=== PATIENT | female | born 1940 | race Caucasian/White ===

== ENCOUNTER → 2016-11-28 | Outpatient (CLI) | payer MEDICARE, BC ==
[~2016-11-28] MED LIST: ALENDRONATE SOD35 M1 PO; AMOXIL500 MG PO; ASPIRIN E.C.325 MG PO; ASPIRIN325 M2 PO; BACTRIM DS 8001 TAB PO; CALCIUM W/D; CIPRO500 MG PO; CITRACAL + D 311 TAB PO; GLIMEPIRIDE4 MG PO; LEVOFLOXACIN500 MG PO; LISINOPRIL10 MG PO; MEDROL DOSEPAK4 MG PO; METFORMIN500 MG PO; NIASPAN500 MG PO; NIFEDIPINE90 MG PO; PREVACID; PREVACID30 MG PO; PROCARDIA XL90 MG PO; ROBITUSSIN DM 105 ML PO; SIMVASTATIN40 MG PO; TRIMETHOPRIM100 MG PO; VITAMIN D1000 IU PO; VITAMIN D50000 I1 PO
[2016-11-28 11:11] LABS: BASO # 0.1 10*3/uL (0.0-0.1); BASO % 0.9 % (0.0-1.0); EOS # 0.3 10*3/uL (0.0-0.4); HEMATOCRIT 37.1 % (37.0-47.0); HEMOGLOBIN 11.8 g/dl (12.0-16.0); LYMPH % 26.7 % (27.0-41.0); MEAN CORPUSCULAR HGB 29.6 pg (27.0-31.0); MEAN CORPUSCULAR HGB CONC 31.8 g/dl (33.0-37.0); MONO # 0.6 10*3/uL (0.1-1.0); MONO % 5.5 % (3.0-9.0); NEUT # 7.2 10*3/uL (2.3-7.9); NEUT % 63.3 % (47.0-73.0); PLATELET COUNT AUTOMATED 418 10*3/uL (130-400); RED BLOOD COUNT 3.99 10*6/uL (4.10-5.10); RED CELL DISTRI WIDTH 13.3 % (0-14.5); WHITE BLOOD COUNT 11.4 10*3/uL (4.8-10.8)
[2016-11-28 11:44] LABS: BUN 22 mg/dl (7-24); CHLORIDE 107 mmol/L (98-107); CHOLESTEROL 132 mg/dL (<200); CPK 60 U/L (26-192); CREATININE 0.76 mg/dL (0.55-1.02); HDL CHOLESTEROL 41 mg/dl (40-60); LDL CHOLESTEROL 65 mg/dL (9-159); POTASSIUM 4.5 mmol/L (3.5-5.1); SGOT/AST 10 IU/L (3-35); SODIUM 138 mmol/L (136-145); TRIGLYCERIDES 130 mg/dl (<150); VLDL CHOLESTEROL 26 mg/dL (6-40)
== END | disposition home or self-care (01) ==
LOC: LAB 10:47
PROVIDERS: Internal Medicine
DX: E78.5 Hyperlipidemia, unspecified (principal); I10 Essential (primary) hypertension; E11.9 Type 2 diabetes mellitus without complications

== ENCOUNTER → 2017-06-24 | Outpatient (CLI) | payer MEDICARE, BC | END | disposition home or self-care (01) | LOC: LAB 09:12 | PROVIDERS: Internal Medicine | DX: E55.9 Vitamin D deficiency, unspecified (principal); E87.8 Other disorders of electrolyte and fluid balance, not elsewhere classified ==

== ENCOUNTER → 2018-09-08 | Outpatient (CLI) | payer MEDICARE, BC ==
[2018-09-11 17:07] LABS: t-TRANSGLUTAMINASE (tTG) IGA <2 U/mL (0-3)
[2018-09-13 17:03] LABS: CHROMOGRANIN A 5 nmol/L (0-5)
== END | disposition home or self-care (01) ==
LOC: LAB 10:59
PROVIDERS: Internal Medicine Gastroenterology
DX: R19.7 Diarrhea, unspecified (principal)

== ENCOUNTER 2019-06-21 12:41 | Inpatient (IN) | payer MEDICARE, BC ==
[~2019-06-21] VITALS: Ht 152.4 cm; Wt 82.6 kg
[2019-06-21 12:46] VITALS: BP 138/66
[2019-06-21 13:40] LABS: BASO # 0.1 10*3/uL (0.0-0.1); BASO % 0.4 % (0.0-1.0); EOS # 0.1 10*3/uL (0.0-0.4); EOS % 0.2 % (1.0-4.0); HEMATOCRIT 41.9 % (37.0-47.0); LYMPH # 2.3 10*3/uL (1.3-4.4); LYMPH % 11.3 % (27.0-41.0); MEAN CELL VOLUME 92.7 fl (81.0-99.0); MEAN CORPUSCULAR HGB 29.9 pg (27.0-31.0); MEAN CORPUSCULAR HGB CONC 32.2 g/dl (33.0-37.0); MEAN PLATELET VOLUME 10.2 fl (9.6-12.3); MONO # 0.7 10*3/uL (0.1-1.0); MONO % 3.5 % (3.0-9.0); NEUT # 16.8 10*3/uL (2.3-7.9); NEUT % 84.1 % (47.0-73.0); PLATELET COUNT AUTOMATED 383 10*3/uL (130-400); RED BLOOD COUNT 4.52 10*6/uL (4.10-5.10); RED CELL DISTRI WIDTH 14.9 % (0-14.5)
[2019-06-21 13:43] LABS: BILIRUBIN NEGATIVE (NEGATIVE); BLOOD TRACE-INTACT (NEGATIVE); CLARITY SL CLOUDY (CLEAR); COLOR YELLOW (YELLOW); GLUCOSE NEGATIVE (NEGATIVE); KETONE 1+ (NEGATIVE); LEUKO ESTERASE TRACE (NEGATIVE); NITRITE NEGATIVE (NEGATIVE); UROBILINOGEN 0.2 E.U./dl (0.2-1.0)
[2019-06-21 13:54] LABS: BACTERIA 2+
[2019-06-21 13:58] LABS: ALBUMIN 3.6 gm/dl (3.1-4.5); ALKALINE PHOSPHATASE 22 U/L (45-117); BUN 25 mg/dl (7-24); CHLORIDE 110 mmol/L (98-107); POTASSIUM 4.3 mmol/L (3.5-5.1); SGOT/AST 24 IU/L (3-35); SGPT/ALT 27 U/L (12-78); SODIUM 137 mmol/L (136-145); TOTAL PROTEIN 8.2 gm/dL (6.4-8.2)
[2019-06-21 14:00] LABS: TROPONIN I < 0.015 ng/ml (<0.045)
[2019-06-21 16:00] VITALS: BP 138/66
[2019-06-21] MEDS ORDERED: PRILOSEC20 M1 PO (16:06)
[2019-06-21] MEDS ORDERED: LANTUS SOL100 UNIT/1 SQ (16:07)
[2019-06-21] MEDS ORDERED: LANTUS SOL100 UNIT/1 SC (16:10)
[2019-06-21 17:35] VITALS: BP 122/77
--- NOTE | 2019-06-21 18:00 | NUR ---
Time: 1699 A 79 year old FEMALE admitted to 4E under services of DAYA MCKEON DO. Pt. arrived via bed from ER. Chief complaint: DIZZINESS, RIB FRACTURE, DEHYDRATION SHARON AYALA
[2019-06-21 20:00] VITALS: BP 158/69
--- NOTE | 2019-06-21 22:08 | NUR ---
PATIENT MEDICATED WITH NORCO FOR COMPLAINTS OF RIGHT RIB PAIN. WILL CONTINUE TO MONITOR. CALL LIGHT IN REACH.
[2019-06-22] VITALS: BP 154/58
--- NOTE | 2019-06-22 04:00 | NUR ---
PATIENT MEDICATED WITH TYLENOL FOR RIGHT RIB AND SHOULDER PAIN. WILL CONTINUE TO MONITOR.
--- NOTE | 2019-06-22 05:45 | NUR ---
PATIENT MEDICATED WITH NORCO FOR COMPLAINTS OF RIGHT RIB PAIN. WILL MONITOR FOR EFFECTIVENESS. CALL LIGHT IN REACH.
[2019-06-22 06:14] LABS: BUN 21 mg/dl (7-24); CHLORIDE 112 mmol/L (98-107); CREATININE 0.78 mg/dL (0.55-1.02); SODIUM 142 mmol/L (136-145)
[2019-06-22 06:14] LABS: BASO # 0.1 10*3/uL (0.0-0.1); BASO % 0.6 % (0.0-1.0); EOS # 0.1 10*3/uL (0.0-0.4); EOS % 1.1 % (1.0-4.0); HEMATOCRIT 36.5 % (37.0-47.0); LYMPH # 2.7 10*3/uL (1.3-4.4); LYMPH % 21.9 % (27.0-41.0); MEAN CELL VOLUME 92.2 fl (81.0-99.0); MEAN CORPUSCULAR HGB 29.8 pg (27.0-31.0); MEAN CORPUSCULAR HGB CONC 32.3 g/dl (33.0-37.0); MEAN PLATELET VOLUME 10.3 fl (9.6-12.3); MONO % 8.4 % (3.0-9.0); NEUT # 8.2 10*3/uL (2.3-7.9); NEUT % 67.8 % (47.0-73.0); PLATELET COUNT AUTOMATED 361 10*3/uL (130-400); RED BLOOD COUNT 3.96 10*6/uL (4.10-5.10); RED CELL DISTRI WIDTH 15.4 % (0-14.5); WHITE BLOOD COUNT 12.1 10*3/uL (4.8-10.8)
[2019-06-22 06:18] LABS: CHOLESTEROL 158 mg/dL (<200); FREE T4 0.98 ng/dl (0.76-1.46); HDL CHOLESTEROL 34 mg/dl (40-60); LDL CHOLESTEROL 84 mg/dL (9-159); PHOSPHOROUS 4.1 mg/dL (2.5-4.9); TRIGLYCERIDES 198 mg/dl (<150); VLDL CHOLESTEROL 40 mg/dL (6-40)
[2019-06-22 08:00] VITALS: BP 170/72
--- NOTE | 2019-06-22 10:12 | NUR ---
PHYSICAL THERAPY Physical Therapy evaluation completed on 4E with full evaluation to follow. Low complexity PT evaluation per chart review and evaluation, [address]. Recommend physical therapy per plan of care and Home Health upon discharge. Thank you for this referral. Katiuska Turner,PT,DPT
--- NOTE | 2019-06-22 11:20 | NUR ---
NOTIFIED OF EVELAVTED BP 180/82, PT C/O OF DIZZINESS, IV HYDRALAZINE GIVEN PER ORDER WILL REASSESS
[2019-06-22 12:00] VITALS: BP 132/46
--- NOTE | 2019-06-22 12:31 | NUR ---
NOTIFIED OF REPEAT BP 0 132/56, PER PT HER VERTIGO HAS RESOLVED NO COMPLAINTS AT THIS TIME WILL CONTINUE TO MONITOR
--- NOTE | 2019-06-22 13:07 | NUR ---
Supervisor Rubber Covering in to talk to patient. Patient states lives at HOME with . There are 10 steps in the home. Physician: HONG MOCTEZUMA [facility] [place] [facility]: NONE Patient's level of ADLs: INDEPENDENT Patient has working utilities: YES DME: NONE Follow-up physician's appointment after d/c: WILL BE MADE BY HOSPITALIST NURSE DIRECTOR ON DISCHARGE Does patient want to access PORTAL?: NO Discharge plan PT STATES SHE LIVES AT HOME WITH HER AND IS INDEPENDENT IN HER CARE. DENIES SHE WILL HAVE ANY NEEDS ON DISCHARGE. PLANS TO RETURN HOME WHEN MEDICALLY STABLE. STATES HER FAMILY WILL TRANSPORT HER HOME. WILL CONTINUE TO FOLLOW.. ISIDORO MOTTA
[2019-06-22 16:00] VITALS: BP 130/61
[2019-06-22 20:00] VITALS: BP 154/57
--- NOTE | 2019-06-22 21:25 | NUR ---
PATIENT MEDICATED WITH NORCO FOR COMPLAINTS OF RIGHT RIB PAIN. WILL CONTINUE TO MONITOR. CALL LIGHT IN REACH.
[2019-06-23] VITALS: BP 151/56
[2019-06-23 06:17] LABS: BASO # 0.1 10*3/uL (0.0-0.1); BASO % 0.6 % (0.0-1.0); EOS # 0.2 10*3/uL (0.0-0.4); EOS % 1.8 % (1.0-4.0); HEMATOCRIT 36.8 % (37.0-47.0); LYMPH # 2.9 10*3/uL (1.3-4.4); LYMPH % 26.6 % (27.0-41.0); MEAN CELL VOLUME 92.9 fl (81.0-99.0); MEAN CORPUSCULAR HGB 29.3 pg (27.0-31.0); MEAN CORPUSCULAR HGB CONC 31.5 g/dl (33.0-37.0); MEAN PLATELET VOLUME 10.6 fl (9.6-12.3); MONO % 8.7 % (3.0-9.0); NEUT # 6.8 10*3/uL (2.3-7.9); NEUT % 61.8 % (47.0-73.0); PLATELET COUNT AUTOMATED 348 10*3/uL (130-400); RED BLOOD COUNT 3.96 10*6/uL (4.10-5.10); RED CELL DISTRI WIDTH 15.2 % (0-14.5)
[2019-06-23 06:22] LABS: BUN 20 mg/dl (7-24); CHLORIDE 111 mmol/L (98-107); CREATININE 0.69 mg/dL (0.55-1.02); POTASSIUM 4.2 mmol/L (3.5-5.1); SODIUM 139 mmol/L (136-145)
[2019-06-23 07:49] VITALS: BP 147/51
--- NOTE | 2019-06-23 07:54 | NUR ---
PT MEDICATED WITH PO NORCO PER PRN ORDER FOR C/O RIGHT RIB PAIN. RATES PAIN 11/16. WILL MONITOR EFFECTIVENESS. CALL LIGHT WITHIN REACH. VSS.
[2019-06-23 08:00] VITALS: BP 133/73
--- NOTE | 2019-06-23 09:00 | NUR ---
PT HAD 1 EMESIS DUE TO PRIOR NORCO. NORCO DISCONTINUED. WILL CONTINUE TO MONITOR.
[2019-06-23] MEDS ORDERED: ASPIR 8181 MG PO (09:42)
[2019-06-23] MEDS ORDERED: LISINOPRIL20 MG PO (09:42)
[2019-06-23] MEDS ORDERED: ZOFRAN4 MG PO (09:42)
--- NOTE | 2019-06-23 10:00 | NUR ---
PHYSICAL THERAPY Patient seen this am 1;1 for therapy visit and was sitting up in bedside chair upon therapist arrival. Patient identified by name / and reports 4-5/ 10 R rib pain from recent fall. OT podiatric assistant was also present for observation only this session as patient transfers sit to stand SBA x 1. Patient ambulates DYE REEL OPERATOR/CGA, 25'x 2, demonstrating very slow, cautious gait pattern, decreased stride and increased fatigue, requiring seated rest between gait trials. Patient returned to bedside chair and remained with call light, tray table and telephone. Will continue per POC as tolerated, total treatment time 16 minutes. Lee Noe, DRY PLASTERER HELPER
--- NOTE | 2019-06-23 10:00 | NUR ---
OT NOTE Pt was seen this A.M. 1:1 for 15 minute OT session. Upon arrival pt was sitting upright in the recliner. Pt identified by name and and had complaints of 4-5/10 R sided rib pain. Pt completed sit to stand from chair level with SBA followed by functional mobility to the bathroom with CGA COMPONENTS ENGINEER for safety. There she transferred on/off standard commode with CGA for safety. Functional mobility was then completed back to the recliner with CGA COMPONENTS ENGINEER. While sitting pt was not reaching back with BUE's resulting in "dropping" into the chair increasing pain. Educated pt on reaching back for the chair for both safety and pain precautions, pt presented with fair carry over. Pt was left sitting upright in the recliner with call light in hand, tray table in place, and phone in reach. Continue with rec D/C plan to home with home health. ROWAN Cardoza/Alexey
--- NOTE | 2019-06-23 11:13 | NUR ---
Discharge instructions reviewed with patient/family. Patient receptive and verbalizes understanding. Follow-up care arranged. Written instructions given to patient/family. BRISSA BEAVER.
--- NOTE | 2019-06-23 11:45 | NUR ---
REFERRAL FAXED TO [facility].
--- NOTE | 2019-06-23 16:24 | NUR ---
PHYSICAL THERAPY CO-SIGN I approve of the Physical Therapy notes written above. MIKO CESAR, PT,DPT
--- NOTE | 2019-06-23 16:27 | NUR ---
OCCUPATIONAL THERAPY CO-SIGN I approve of the Occupational Therapy notes written above. RAFY SWIFT, OTR/L
== END 2019-06-23 11:13 | disposition home or self-care (01) | DRG 206 ==
LOC: ED 12:41 → 4E 15:29 → EDHOLD 15:29 → 4E 15:41
PROVIDERS: Internal Medicine; Nurse Practitioner Family; ADMIT Internal Medicine
DX: S22.31XA Fracture of one rib, right side, initial encounter for closed fracture (principal); E86.0 Dehydration; D72.829 Elevated white blood cell count, unspecified; E87.8 Other disorders of electrolyte and fluid balance, not elsewhere classified; E11.65 Type 2 diabetes mellitus with hyperglycemia; E78.5 Hyperlipidemia, unspecified; I10 Essential (primary) hypertension; K21.9 Gastro-esophageal reflux disease without esophagitis; M19.011 Primary osteoarthritis, right shoulder; E78.1 Pure hyperglyceridemia; D64.9 Anemia, unspecified; Z79.4 Long term (current) use of insulin

== ENCOUNTER 2019-07-20 14:47 | Emergency (ER) | payer MEDICARE, BC ==
[~2019-07-20] VITALS: Ht 154.9 cm; Wt 78.5 kg
[~2019-07-20 14:47] MED LIST changes: +ASPIR 8181 MG PO; +LANTUS SOL100 UNIT/1 SC; +LANTUS SOL100 UNIT/1 SQ; +LISINOPRIL20 MG PO; +PRILOSEC20 M1 PO; +ZOFRAN4 MG PO
[2019-07-20 15:41] LABS: BASO # 0.1 10*3/uL (0.0-0.1); BASO % 0.6 % (0.0-1.0); EOS # 0.3 10*3/uL (0.0-0.4); EOS % 2.1 % (1.0-4.0); HEMATOCRIT 37.7 % (37.0-47.0); LYMPH # 3.3 10*3/uL (1.3-4.4); LYMPH % 24.5 % (27.0-41.0); MEAN CORPUSCULAR HGB CONC 32.6 g/dl (33.0-37.0); MEAN PLATELET VOLUME 10.2 fl (9.6-12.3); MONO # 0.9 10*3/uL (0.1-1.0); MONO % 6.3 % (3.0-9.0); NEUT # 8.9 10*3/uL (2.3-7.9); PLATELET COUNT AUTOMATED 378 10*3/uL (130-400); RED CELL DISTRI WIDTH 13.9 % (0-14.5); WHITE BLOOD COUNT 13.6 10*3/uL (4.8-10.8)
[2019-07-20 15:51] LABS: ACT PARTIAL THROMBO TIME 24.2 SECONDS (20.0-32.1)
[2019-07-20 15:56] LABS: ALBUMIN 3.1 gm/dl (3.1-4.5); ALKALINE PHOSPHATASE 29 U/L (45-117); BUN 18 mg/dl (7-24); CHLORIDE 106 mmol/L (98-107); CREATININE 0.91 mg/dL (0.55-1.02); LIPASE 37 U/L (73-393); POTASSIUM 4.4 mmol/L (3.5-5.1); SGOT/AST 22 IU/L (3-35); SGPT/ALT 29 U/L (12-78); SODIUM 135 mmol/L (136-145); TOTAL PROTEIN 7.1 gm/dL (6.4-8.2)
[2019-07-20 15:59] LABS: TROPONIN I < 0.015 ng/ml (<0.045)
[2019-07-20 18:29] LABS: BILIRUBIN NEGATIVE (NEGATIVE); BLOOD NEGATIVE (NEGATIVE); CLARITY CLEAR (CLEAR); COLOR STRAW (YELLOW); GLUCOSE NEGATIVE (NEGATIVE); KETONE NEGATIVE (NEGATIVE); LEUKO ESTERASE TRACE (NEGATIVE); NITRITE NEGATIVE (NEGATIVE); PH 6.5 (5.0-9.0); SPECIFIC GRAVITY 1.005 (1.005-1.030); UROBILINOGEN 0.2 E.U./dl (0.2-1.0)
[2019-07-20 18:38] LABS: BACTERIA TRACE; RBC 0-2 rbc/hpf (0-2)
[2019-07-20] MEDS ORDERED: MECLIZINE HYD12.5 MG PO (19:01)
== END 2019-07-20 19:25 | disposition home or self-care (01) ==
LOC: ED 14:47
PROVIDERS: Nurse Practitioner Family
DX: R42 Dizziness and giddiness (principal); I10 Essential (primary) hypertension; E11.9 Type 2 diabetes mellitus without complications; E78.5 Hyperlipidemia, unspecified; M10.9 Gout, unspecified; Z79.899 Other long term (current) drug therapy; Z79.2 Long term (current) use of antibiotics; Z90.49 Acquired absence of other specified parts of digestive tract; Z90.710 Acquired absence of both cervix and uterus; Z79.4 Long term (current) use of insulin

== ENCOUNTER → 2021-05-14 | Outpatient (CLI) | payer MEDICARE, BC ==
[~2021-05-14] MED LIST changes: +MECLIZINE HYD12.5 MG PO; +OMNICEF300 MG PO
[2021-05-14 12:38] LABS: BASO # 0.1 10*3/uL (0.0-0.1); BASO % 0.6 % (0.0-1.0); EOS # 0.2 10*3/uL (0.0-0.4); EOS % 1.6 % (1.0-4.0); HEMATOCRIT 41.2 % (37.0-47.0); LYMPH # 3.7 10*3/uL (1.3-4.4); LYMPH % 27.1 % (27.0-41.0); MEAN CELL VOLUME 92.8 fl (81.0-99.0); MEAN CORPUSCULAR HGB 29.7 pg (27.0-31.0); MEAN PLATELET VOLUME 9.7 fl (9.6-12.3); MONO # 0.8 10*3/uL (0.1-1.0); MONO % 5.8 % (3.0-9.0); NEUT # 8.8 10*3/uL (2.3-7.9); NEUT % 64.5 % (47.0-73.0); PLATELET COUNT AUTOMATED 450 10*3/uL (130-400); RED BLOOD COUNT 4.44 10*6/uL (4.10-5.10); RED CELL DISTRI WIDTH 13.2 % (0-14.5); WHITE BLOOD COUNT 13.7 10*3/uL (4.8-10.8)
[2021-05-14 12:56] LABS: CREATININE 1.14 mg/dL (0.55-1.02); POTASSIUM 4.3 mmol/L (3.5-5.1); TOTAL PROTEIN 7.9 gm/dL (6.4-8.2)
== END | disposition home or self-care (01) ==
LOC: LAB 12:17
PROVIDERS: ATTEND Nurse Practitioner Family
DX: R10.9 Unspecified abdominal pain (principal)

== ENCOUNTER → 2022-01-17 | Outpatient (CLI) | payer MEDICARE, BC ==
[2022-01-17 10:53] LABS: BUN 20 mg/dl (7-24); CHLORIDE 105 mmol/L (98-107); CHOLESTEROL 138 mg/dL (<200); CPK 78 U/L (26-192); CREATININE 0.91 mg/dL (0.55-1.02); LDL CHOLESTEROL 72 mg/dL (9-159); POTASSIUM 4.2 mmol/L (3.5-5.1); SGOT/AST 18 IU/L (3-35); SODIUM 136 mmol/L (136-145); TRIGLYCERIDES 166 mg/dl (<150)
== END ==
LOC: LAB 10:05
PROVIDERS: ATTEND Internal Medicine
DX: E78.5 Hyperlipidemia, unspecified (principal); E55.9 Vitamin D deficiency, unspecified; I10 Essential (primary) hypertension; E11.9 Type 2 diabetes mellitus without complications

== ENCOUNTER → 2022-04-03 | Outpatient (CLI) | payer MEDICARE, BC ==
[2022-04-03 11:59] LABS: BUN 19 mg/dl (9-23); CHLORIDE 104 mmol/L (98-107); POTASSIUM 4.6 mmol/L (3.4-5.1)
== END | disposition home or self-care (01) ==
LOC: LAB 11:19
PROVIDERS: ATTEND Nurse Practitioner Family
DX: I10 Essential (primary) hypertension (principal)

== ENCOUNTER → 2022-09-02 | Outpatient (CLI) | payer MEDICARE, BC ==
[2022-09-02 11:58] LABS: CHOLESTEROL 149 mg/dL (<200); CPK 81 U/L (34-171); LDL CHOLESTEROL 75 mg/dL (9-159); TRIGLYCERIDES 195 mg/dl (<150)
== END | disposition home or self-care (01) ==
LOC: LAB 10:57
PROVIDERS: ATTEND Internal Medicine
DX: E11.9 Type 2 diabetes mellitus without complications (principal); E78.5 Hyperlipidemia, unspecified; E55.9 Vitamin D deficiency, unspecified

== ENCOUNTER → 2022-10-15 | Outpatient (CLI) | payer MEDICARE, BC ==
[2022-10-15 12:39] LABS: BUN 19 mg/dl (9-23); CHLORIDE 105 mmol/L (98-107); POTASSIUM 4.9 mmol/L (3.4-5.1)
== END | disposition home or self-care (01) ==
LOC: LAB 11:17
PROVIDERS: ATTEND Nurse Practitioner Family
DX: I10 Essential (primary) hypertension (principal)

== ENCOUNTER → 2023-11-21 | Outpatient (CLI) | payer MEDICARE, BC ==
[2023-11-21 10:40] LABS: BUN 20 mg/dl (9-23); CHLORIDE 106 mmol/L (98-107); POTASSIUM 4.6 mmol/L (3.4-5.1)
== END | disposition home or self-care (01) ==
LOC: LAB 09:42
PROVIDERS: Internal Medicine; ATTEND Nurse Practitioner Family
DX: I10 Essential (primary) hypertension (principal); E55.9 Vitamin D deficiency, unspecified; E11.9 Type 2 diabetes mellitus without complications

== ENCOUNTER → 2024-08-02 | Outpatient (CLI) | payer MEDICARE, BC ==
[2024-08-02 12:54] LABS: BUN 12 mg/dl (9-23); CHLORIDE 106 mmol/L (98-107)
== END | disposition home or self-care (01) ==
LOC: LAB 12:08
PROVIDERS: ATTEND Internal Medicine
DX: I10 Essential (primary) hypertension (principal); E11.9 Type 2 diabetes mellitus without complications; E55.9 Vitamin D deficiency, unspecified

== ENCOUNTER → 2025-01-09 | Outpatient (CLI) | payer MEDICARE, BC | END | disposition home or self-care (01) | LOC: LAB 12:13 | PROVIDERS: ATTEND Internal Medicine | DX: E11.9 Type 2 diabetes mellitus without complications (principal); E55.9 Vitamin D deficiency, unspecified ==